=== PATIENT | female | born 1975 | race Caucasian/White ===

== ENCOUNTER 2017-04-09 08:58 | Emergency (ER) | payer OTHER ==
[~2017-04-09] VITALS: Ht 152.4 cm; Wt 57.0 kg
[~2017-04-09 08:58] MED LIST: AUG875 PO; BACTDS PO; CEPH-443 PO; HYDR-3498 PO; IBUP-1542 PO; NAPR-260 PO; POLY10DR19 BOTH EYES; TRAM50TA2 PO
[2017-04-09 09:02] VITALS: Ht 152.4 cm; Wt 57.0 kg
[2017-04-09] MEDS ORDERED: LIDOCAINE/MYLANTA 40 ML BTL PO STA (09:46)
--- NOTE | 2017-04-09 11:08 | ERD ---
ER Documentation Chief Complaint Date/Time DATE: 04/09/17 TIME: 11:06 Chief Complaint Complains of left side and abdominal pain x 3 days HPI 41-year-old female comes in with left upper quadrant abdominal pain for 3 days. She describes as burning, localized, moderate, worse after eating. She denies fevers, chills, chest pain, shortness breath. ROS All systems reviewed and are negative except as per history of present illness. Medications Home Meds Active Scripts Ranitidine Hcl* (Zantac*) 150 Mg Tablet, 150 MG PO BID Y for EPIGASTRIC PAIN, # 30 TAB Prov:PUSHPA ARECHIGA PA-C 04/09/17 Ibuprofen* (Motrin*) 600 Mg Tab, 600 MG PO Q6H Y for PAIN AND OR ELEVATED TEMP, #30 TAB Prov:JESICA MARIANO SUPERVISOR CRACK OFF 02/04/16 Amoxicillin-Clavulanate K* (Augmentin*) 875 Mg Tab, 875 MG PO BID for 7 Days, TAB Prov:JUAN PRADO 09/04/15 Polymyxin B Sulfate-TMP* (Polymyxin B-TMP Eye Drops*) 10 Ml Drops, 1 DROP BOTH EYES QID for 7 Days, EA Prov:JUAN PRADO 09/04/15 Hydrocodone Bit-Acetaminophen* (Baraga*) 5-325 Mg Tab, 1 TAB PO Q6 Y for PAIN, # 15 TAB Prov:PEYTON BURCH PA-C 05/26/15 Cephalexin* (Keflex*) 500 Mg Capsule, 500 MG PO QID for 7 Days, CAP Prov:PEYTON BURCH PA-C 05/26/15 Sulfamethoxazole-Trimethoprim* (Bactrim* DS) 800-160 Mg Tab, 1 TAB PO BID for 5 Days, TAB Prov:PEYTON BURCH PA-C 05/26/15 Tramadol HCl (Tramadol HCl) 50 Mg Tab, 50 MG PO Q4 Y for PAIN, #20 TAB Prov:PUSHPA ARECHIGA PA-C 05/23/15 Naproxen* (Naprosyn*) 500 Mg Tablet, 500 MG PO BID Y for PAIN AND/OR INFLAMMATION, #30 TAB Prov:DEBBIE PLEITEZ PA-C 02/02/15 Allergies Allergies: Coded Allergies: Shellfish (Verified Allergy, Unknown, HIVES, 6/27/16) PMhx/Soc History of Surgery: Yes ( X 2; BACK SURGERY) Anesthesia Reaction: No Hx Neurological Disorder: No Hx Respiratory Disorders: No Hx Cardiac Disorders: No Hx Psychiatric Problems: No Hx Miscellaneous Medical Probl: Yes (OVARIAN CYST) Hx Alcohol Use: No Hx Substance Use: No Hx Tobacco Use: No Smoking Status: Never smoker Physical Exam Vitals Vital Signs Date Time Temp Pulse Resp B/P Pulse Ox O2 Delivery O2 Flow Rate FiO2 04/09/17 09:02 98.5 75 20 113/65 99 Physical Exam General: Well-developed, well-nourished. The patient appears in no acute distress. HEENT: Head is normocephalic, atraumatic. No scleral icterus. Pupils are equal , round, and reactive. Oral mucous membranes are moist. No pharyngeal erythema. Neck: Supple. Nontender. Lungs: Clear to auscultation. Normal air movement. Heart: Regular rate and rhythm. S1 and S2 are normal. No murmurs, gallops, or rubs. Abdomen: Soft, tender left upper quadrant, no masses, no McBurney tenderness, negative Ospina sign, nondistended. Bowel sounds are normoactive. Extremities: No clubbing or cyanosis. Normal pulses. Moving extremities x 4. No weakness. Neurologic: Alert and oriented 3. No focal deficits. Skin: Normal turgor. No rash or lesions. Result Diagram: 04/09/17 1000 04/09/17 1000 Results 24 hrs Laboratory Tests Test 04/09/17 10:00 04/09/17 10:20 White Blood Count 5.410^3/ul Red Blood Count 4.3010^6/ul Hemoglobin 13.3g/dl Hematocrit 39.8% Mean Corpuscular Volume 92.6fl Mean Corpuscular Hemoglobin 30.9pg Mean Corpuscular Hemoglobin Concent 33.4g/dl Red Cell Distribution Width 12.7% Platelet Count 98488^3/UL Mean Platelet Volume 10.7fl Neutrophils % 59.5% Lymphocytes % 29.2% Monocytes % 8.4% Eosinophils % 1.5% Basophils % 0.7% Nucleated Red Blood Cells % 0.0/100WBC Neutrophils # (Manual) 3.210^3/ul Lymphocytes # 1.610^3/ul Monocytes # 0.510^3/ul Eosinophils # 0.110^3/ul Basophils # 0.010^3/ul Nucleated Red Blood Cells # 0.010^3/ul Sodium Level 146mmol/L Potassium Level 3.8mmol/L Chloride Level 105mmol/L Carbon Dioxide Level 26mmol/L Anion Gap 19 Blood Urea Nitrogen 7mg/dl Creatinine 0.63mg/dl Glucose Level 81mg/dl Calcium Level 9.0mg/dl Total Bilirubin 0.7mg/dl Direct Bilirubin 0.00mg/dl Indirect Bilirubin 0.7mg/dl Aspartate Amino Transf (AST/SGOT) 20IU/L Alanine Aminotransferase (ALT/SGPT) 33IU/L Alkaline Phosphatase 57IU/L Total Protein 8.0g/dl Albumin 4.2g/dl Globulin 3.80g/dl Albumin/Globulin Ratio 1.10 Lipase 160U/L Urine Color YELLOW Urine Clarity CLEAR Urine pH 6.0 Urine Specific [place] 1.014 Urine Ketones NEGATIVEmg/dL Urine Nitrite NEGATIVEmg/dL Urine Bilirubin NEGATIVEmg/dL Urine Urobilinogen NEGATIVEmg/dL Urine Leukocyte Esterase TRACELeu/ul Urine Microscopic RBC 1/HPF Urine Microscopic WBC 1/HPF Urine Squamous Epithelial Cells FEW/HPF Urine Hemoglobin 1+mg/dL Urine Glucose NEGATIVEmg/dL Urine Total Protein NEGATIVEmg/dl Current Medications Medications (Trade) Dose Ordered Sig/Jeovany Route PRN Reason Start Time Stop Time Status Last Admin Dose Admin Miscellaneous Medication (Gi Cocktail (2)) 40 ml ONCE STAT PO 04/09/17 09:46 04/09/17 09:48 DC 04/09/17 09:56 urine preg: neg Procedures/MDM 41-year-old female comes in with left upper quadrant pain, differential diagnosis includes gastritis, gastritis, acute pancreatitis, acute hepatobiliary process, appendicitis, dissection, acute coronary syndrome, pneumonia. Patient's labs are unremarkable, no evidence of leukocytosis, pancreatitis, transaminitis, urinary tract infection. She was given a GI cocktail and is feeling much better at this time .She likely presents with gastritis versus GERD, discharge to home, stable. Departure Diagnosis: Primary Impression: Abdominal pain Condition: Good PUSHPA ARECHIGA PA-C Apr 09, 2017 11:07
[2017-04-09 11:50] LABS: BASOPHILS % 0.7 % (0.0-2.0); EOSINOPHILS # 0.1 10^3/ul (0.0-0.5); EOSINOPHILS % 1.5 % (0.0-7.0); HEMATOCRIT 39.8 % (37.0-47.0); HEMOGLOBIN 13.3 g/dl (12.0-16.0); LYMPHOCYTES # 1.6 10^3/ul (0.8-2.9); LYMPHOCYTES % 29.2 % (15.0-51.0); MEAN CORPUSCULAR HEMOGLOBIN 30.9 pg (29.0-33.0); MEAN CORPUSCULAR HGB CONC 33.4 g/dl (32.0-37.0); MEAN CORPUSCULAR VOLUME 92.6 fl (82.0-101.0); MEAN PLATELET VOLUME 10.7 fl (7.4-10.4); MONOCYTE # 0.5 10^3/ul (0.3-0.9); MONOCYTES % 8.4 % (0.0-11.0); NEUTROPHILS % 59.5 % (39.0-77.0); PLATELET COUNT 211 10^3/UL (140-415); RED CELL DISTRIBUTION WIDTH 12.7 % (11.5-14.5); WHITE BLOOD COUNT 5.4 10^3/ul (4.8-10.8)
[2017-04-09 11:54] LABS: ADD UMIC YES; UR ASCORBIC ACID NEGATIVE (NEGATIVE); UR BILIRUBIN (Dip) NEGATIVE (NEGATIVE); UR BLOOD (Dip) 1+ mg/dL (NEGATIVE); UR CLARITY CLEAR (CLEAR); UR COLOR YELLOW (YELLOW); UR GLUCOSE (Dip) NEGATIVE (NEGATIVE); UR KETONES (Dip) NEGATIVE (NEGATIVE); UR LEUKOCYTE ESTERASE (Dip) TRACE Leu/ul (NEGATIVE); UR NITRITE (Dip) NEGATIVE (NEGATIVE); UR RBC 1 /HPF (0-5); UR SPECIFIC GRAVITY (Dip) 1.014 (1.003-1.030); UR SQUAMOUS EPITHELIAL CELL FEW /HPF (FEW); UR TOTAL PROTEIN (Dip) NEGATIVE (NEGATIVE); UR UROBILINOGEN (Dip) NEGATIVE (NEGATIVE)
[2017-04-09 12:55] LABS: ALBUMIN 4.2 g/dl (3.3-4.9); ALBUMIN/GLOBULIN RATIO 1.1; BILIRUBIN,INDIRECT 0.7 mg/dl (0-1.1); BILIRUBIN,TOTAL 0.7 mg/dl (0.2-1.3); CREATININE 0.63 mg/dl (0.44-1.00); POTASSIUM 3.8 mmol/L (3.5-5.1)
[2017-04-09] MEDS ORDERED: RANI150T9 PO (13:22)
== END 2017-04-09 13:32 | disposition home or self-care (01) ==
LOC: FTE 08:58
DX: R10.12 Left upper quadrant pain (principal)
CPT/HCPCS: 36415; 80053; 81001; 83690; 85025; Z7502; Z7610; 99283

== ENCOUNTER 2017-04-27 09:40 | Emergency (ER) | payer OTHER ==
[~2017-04-27] VITALS: Wt 57.0 kg
[~2017-04-27 09:40] MED LIST changes: +RANI150T9 PO
--- NOTE | 2017-04-27 11:24 | ERD ---
ER Documentation Chief Complaint Date/Time DATE: 04/27/17 TIME: 11:22 Chief Complaint ap 4 years HPI Patient is a 41-year-old female who presents to the ED with an episode of chest pain, numbness and tingling down her right arm and palpitations last week. She states that on Thursday the symptoms occurred and went away. She denies chest pain or shortness of breath today however she does state that she occasionally gets palpitations. She states that her aunt and uncle from heart attacks unknown of what age. She denies leg pain or leg swelling. Denies headache or dizziness. Denies arm numbness and tingling or weakness today. ROS All systems reviewed and are negative except as per history of present illness. Medications Home Meds Active Scripts Ranitidine Hcl* (Zantac*) 150 Mg Tablet, 150 MG PO BID Y for EPIGASTRIC PAIN, # 30 TAB Prov:PUSHPA ARECHIGA PA-C 04/09/17 Ibuprofen* (Motrin*) 600 Mg Tab, 600 MG PO Q6H Y for PAIN AND OR ELEVATED TEMP, #30 TAB Prov:JESICA MARIANO OUTSOLE COMPRESSOR 02/04/16 Amoxicillin-Clavulanate K* (Augmentin*) 875 Mg Tab, 875 MG PO BID for 7 Days, TAB Prov:JUAN PRADO 09/04/15 Polymyxin B Sulfate-TMP* (Polymyxin B-TMP Eye Drops*) 10 Ml Drops, 1 DROP BOTH EYES QID for 7 Days, EA Prov:JUAN PRADO 09/04/15 Hydrocodone Bit-Acetaminophen* ([place]*) 5-325 Mg Tab, 1 TAB PO Q6 Y for PAIN, # 15 TAB Prov:PEYTON BURCH PA-C 05/26/15 Cephalexin* (Keflex*) 500 Mg Capsule, 500 MG PO QID for 7 Days, CAP Prov:PEYTON BURCH PA-C 05/26/15 Sulfamethoxazole-Trimethoprim* (Bactrim* DS) 800-160 Mg Tab, 1 TAB PO BID for 5 Days, TAB Prov:PEYTON BURCH PA-C 05/26/15 Tramadol HCl (Tramadol HCl) 50 Mg Tab, 50 MG PO Q4 Y for PAIN, #20 TAB Prov:PUSHPA ARECHIGA PA-C 05/23/15 Naproxen* (Naprosyn*) 500 Mg Tablet, 500 MG PO BID Y for PAIN AND/OR INFLAMMATION, #30 TAB Prov:DEBBIE PLEITEZ PA-C 02/02/15 Allergies Allergies: Coded Allergies: Shellfish (Verified Allergy, Unknown, HIVES, 02/04/16) PMhx/Soc History of Surgery: Yes ( X 2; BACK SURGERY) Anesthesia Reaction: No Hx Neurological Disorder: No Hx Respiratory Disorders: No Hx Cardiac Disorders: No Hx Psychiatric Problems: No Hx Miscellaneous Medical Probl: Yes (OVARIAN CYST) Hx Alcohol Use: No Hx Substance Use: No Hx Tobacco Use: No Physical Exam Vitals Vital Signs Date Time Temp Pulse Resp B/P Pulse Ox O2 Delivery O2 Flow Rate FiO2 04/27/17 09:44 98.7 60 18 126/63 99 Physical Exam GENERAL: Well-developed, well-nourished female. Appears in no acute distress. HEAD: Normocephalic, atraumatic. EYES: Pupils are equally reactive bilaterally. EOMs grossly intact. No conjunctival erythema. ENT: Moist mucous membranes. No uvula deviation. No kissing tonsils. No exudates. NECK: Supple. No lymphadenopathy or thyromegaly. No meningismus. negative kernig. negative brudinski. LUNG: Clear to auscultation bilaterally. No rhonchi, wheezing, rales or coarse breath sounds. HEART: Regular rate and rhythm. No murmurs, rubs or gallops. ABDOMEN: No scars, ecchymosis or rashes noted. Soft, nontender, and nondistended. Positive bowel sounds in all four quadrants. No rebound tenderness , no guarding. (-) McBurneys point tenderness. No CVA tenderness. BACK: No midline tenderness. Extremities: Equal pulses bilaterally. No peripheral clubbing, cyanosis or edema. No unilateral leg swelling. NEUROLOGIC: Alert and oriented. Moving all four extremities. 5/5 strength in all extremities. Normal speech. Steady gait. CN 2-12 intact. no ataxia. SKIN: Normal color. Warm and dry. No rashes or lesions. Capillary refill < 2 seconds Result Diagram: 04/27/17 1050 04/27/17 1050 Results 24 hrs Laboratory Tests Test 04/27/17 10:50 White Blood Count 5.110^3/ul Red Blood Count 4.3610^6/ul Hemoglobin 13.6g/dl Hematocrit 40.3% Mean Corpuscular Volume 92.4fl Mean Corpuscular Hemoglobin 31.2pg Mean Corpuscular Hemoglobin Concent 33.7g/dl Red Cell Distribution Width 12.5% Platelet Count 90254^3/UL Mean Platelet Volume 10.1fl Neutrophils % 57.9% Lymphocytes % 31.6% Monocytes % 6.7% Eosinophils % 2.0% Basophils % 1.0% Nucleated Red Blood Cells % 0.0/100WBC Neutrophils # 3.010^3/ul Lymphocytes # 1.610^3/ul Monocytes # 0.310^3/ul Eosinophils # 0.110^3/ul Basophils # 0.110^3/ul Nucleated Red Blood Cells # 0.010^3/ul Sodium Level 139mmol/L Potassium Level 3.9mmol/L Chloride Level 105mmol/L Carbon Dioxide Level 29mmol/L Anion Gap 9 Blood Urea Nitrogen 9mg/dl Creatinine 0.69mg/dl Glucose Level 91mg/dl Calcium Level 9.2mg/dl Troponin I < 0.012ng/ml Procedures/MDM ER COURSE: I kept the patient and/or family informed of laboratory and diagnostic imaging results throughout the emergency room course. EKG, MONITORS, & DIAGNOSTIC IMAGING: EKG performed, read by Dr. sarkar 62 bpm, normal sinus rhythm, normal axis, no acute ST segment changes, no T wave inversion LAB INTERPRETATION: CBC showed no evidence of systemic infection or severe anemia. CMP showed no evidence of electrolyte abnormalities, severe acidosis, alkalosis, renal failure , or liver disease. Urine test was negative. troponin within normal limits MEDICAL DECISION MAKING: This is a 41 year old female who presents with chest wall pain, palpitations last week. Vital signs were reviewed. Patient is afebrile. Patient is not hypoxic. iPatient is nontoxic or ill-appearing. EKG, chest x-ray and labs within normal limits. Low suspicion for ACS, PE, AAA, dissection, DVT, CVA DISCHARGE: At this time, patient is stable for discharge and outpatient management with no new complaints during the ER course. Patient was sent home with copy of all imaging and laboratory studies.. Patient will be discharged home with instructions to recheck for new or worsening symptoms such as fever, nausea, weakness, LOC and to follow up with primary care in the next 1-2 days. Patient was advised to return to the ER for any new or worsening symptoms. Plan was discussed and patient and/or family understands and agrees. Home instructions were given. Departure Diagnosis: Primary Impression: Chest wall pain Additional Impression: Palpitations Condition: Stable CINDY HOFFMANN PA-C Apr 27, 2017 11:24
[2017-04-27 11:31] LABS: BASOPHIL # 0.1 10^3/ul (0.0-0.1); EOSINOPHILS # 0.1 10^3/ul (0.0-0.5); HEMATOCRIT 40.3 % (37.0-47.0); HEMOGLOBIN 13.6 g/dl (12.0-16.0); LYMPHOCYTES # 1.6 10^3/ul (0.8-2.9); LYMPHOCYTES % 31.6 % (15.0-51.0); MEAN CORPUSCULAR HEMOGLOBIN 31.2 pg (29.0-33.0); MEAN CORPUSCULAR HGB CONC 33.7 g/dl (32.0-37.0); MEAN CORPUSCULAR VOLUME 92.4 fl (82.0-101.0); MEAN PLATELET VOLUME 10.1 fl (7.4-10.4); MONOCYTE # 0.3 10^3/ul (0.3-0.9); MONOCYTES % 6.7 % (0.0-11.0); NEUTROPHILS % 57.9 % (39.0-77.0); PLATELET COUNT 244 10^3/UL (140-415); RED BLOOD COUNT 4.36 10^6/ul (4.20-5.40); RED CELL DISTRIBUTION WIDTH 12.5 % (11.5-14.5); WHITE BLOOD COUNT 5.1 10^3/ul (4.8-10.8)
--- NOTE | 2017-04-27 11:41 | RADRPT ---
PROCEDURE: XR Chest AP portable CLINICAL INDICATION: Chest pain, palpitations TECHNIQUE: An AP portable radiograph of the chest was submitted. COMPARISON: None. FINDINGS: Support Hardware: None Cardiovascular: The cardiovascular silhouette appears unremarkable. Lung Laird: The lung laird appear clear with no nodule, alveolar infiltrate, or interstitial promi nence evident. Pleural Spaces: No pneumothorax or pleural effusion is identified. Osseous Structures: The osseous structures appear intact. Soft Tissues: The soft tissues appear unremarkable. IMPRESSION: Unremarkable portable chest. Physician Jaci Date Time Electronically viewed and signed by Hesham Keith Physician on 04/27/2017 11:40 RH/
[2017-04-27 12:01] LABS: ANION GAP 9 (8-16); BLOOD UREA NITROGEN 9 mg/dl (7-20); CALCIUM 9.2 mg/dl (8.4-10.2); CARBON DIOXIDE 29 mmol/L (21-31); CHLORIDE 105 mmol/L (97-110); CREATININE 0.69 mg/dl (0.44-1.00); GLUCOSE 91 mg/dl (70-220); POTASSIUM 3.9 mmol/L (3.5-5.1); SODIUM 139 mmol/L (135-144)
[2017-04-27 12:14] LABS: TROPONIN-I < 0.012 ng/ml (0.00-0.12)
== END 2017-04-27 12:42 | disposition home or self-care (01) ==
LOC: FTE 09:40
DX: R07.89 Other chest pain (principal); R00.2 Palpitations
CPT/HCPCS: 71010; 80048; 84484; 85025; 93005; Z7502

== ENCOUNTER 2017-09-09 08:41 | Emergency (ER) | END 2017-09-09 11:48 | disposition home or self-care (01) ==